=== PATIENT | male | born 1990 | race Caucasian/White ===

== ENCOUNTER 2021-01-22 01:49 | Emergency (ER) | payer SELFPAY ==
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
[2021-01-22] MEDS ORDERED: IBUPROFEN 800 MG TAB PO STA (08:02)
[2021-01-22] MEDS ORDERED: ACETAMINOPHEN 500 MG TAB PO STA (08:02)
[2021-01-22 08:45] VITALS: BP 113/73
== END 2021-01-22 08:45 | disposition home or self-care (01) ==
LOC: ED 01:49
DX: M54.2 Cervicalgia (principal); V89.2XXA Person injured in unspecified motor-vehicle accident, traffic, initial encounter; Y93.89 Activity, other specified; Y92.410 Unspecified street and highway as the place of occurrence of the external cause; Y99.8 Other external cause status
CPT/HCPCS: 72040; 99283